=== PATIENT | male | born 1955 | race Caucasian/White ===

== ENCOUNTER 2017-04-27 08:53 | Day surgery (SDC) | payer MEDICARE ==
[~2017-04-27] VITALS: Ht 175.3 cm; Wt 63.6 kg
[~2017-04-27 08:53] MED LIST: CYCLOPENTOLATE HCL 2% 2 ML OPHTHALMIC SOLUTION ONE; DICLOFENAC SODIUM 0.1% 2.5 ML OPHTHALMIC SOLUTION ONE; MOXIFLOXACIN HCL 0.5% 3 ML OPHTHALMIC SOLUTION ONE; PHENYLEPHRINE HCL 2.5% 2 ML OPHTHALMIC SOLUTION ONE; RINGERS SOLUTION,LACTATED 500 ML IV ONE; TETRACAINE HCL/PF 0.5% 4 ML OPHTHALMIC SOLUTION ONE
[2017-04-27] MEDS ORDERED: MIDAZOLAM HCL 2 MG/2 ML VIAL IVP ONE (08:54)
[2017-04-27] MEDS ORDERED: BRIMONIDINE TARTRATE 0.15% 5 ML OPHTHALMIC SOLUTION OD ONE (08:54)
[2017-04-27] MEDS ORDERED: HYALURONATE SOD/CHONDROITIN SOD 0.5 ML VIAL IO ONE (08:54)
[2017-04-27] MEDS ORDERED: HYALURONATE SODIUM 12 MG/ML 0.8 ML SYRINGE IO ONE (08:54)
[2017-04-27] MEDS ORDERED: TETRACAINE HCL VISCOUS 0.5% 5 ML OPHTHALMIC SOLUTION OD ONE (08:54)
[2017-04-27] MEDS ORDERED: POVIDONE-IODINE 10% 15 ML SOLUTION UD TP ONE (08:54)
[2017-04-27] MEDS ORDERED: EPINEPHrine 1:1,000 [1 MG/ML] AMP IM ONE (08:54)
[2017-04-27] MEDS ORDERED: LIDOCAINE HCL/PF 1% 2 ML VIAL IARTIC ONE (08:54)
[2017-04-27] MEDS ORDERED: SODIUM CHLORIDE 0.9% 500 ML IV ONE ×2 (09:37→09:50)
[2017-04-27 09:47] LABS: GLUCOSE,POINT OF CARE 80 MG/DL (70-110)
[2017-04-27] MEDS: MOXIFLOXACIN HCL 0.5% 3 ML OPHTHALMIC SOLUTION OS SCH ×3 (09:52→10:14)
[2017-04-27] MEDS: CYCLOPENTOLATE HCL 2% 2 ML OPHTHALMIC SOLUTION OS SCH ×3 (09:52→10:03)
[2017-04-27] MEDS: DICLOFENAC SODIUM 0.1% 2.5 ML OPHTHALMIC SOLUTION OS SCH ×3 (09:52→10:15)
[2017-04-27] MEDS: PHENYLEPHRINE HCL 2.5% 2 ML OPHTHALMIC SOLUTION OS SCH ×3 (09:52→10:03)
[2017-04-27] MEDS ORDERED: FLUT1AER IH (09:57)
[2017-04-27] MEDS ORDERED: IPRA4AER IH (09:57)
[2017-04-27] MEDS ORDERED: TETRACAINE HCL/PF 0.5% 4 ML OPHTHALMIC SOLUTION OS ONE (10:00)
[2017-04-27] MEDS ORDERED: ACETAMINOPHEN/CODEINE 300-30 MG TABLET PO PRN (10:00)
[2017-04-27] MEDS ORDERED: RINGERS SOLUTION,LACTATED 500 ML IV ONE (10:30)
[2017-04-27] MEDS ORDERED: AcetaZOLAMIDE 250 MG TABLET ONE (11:11)
[2017-04-27] MEDS ORDERED: AcetaZOLAMIDE 250 MG TABLET PO ONE (12:00)
== END 2017-04-27 11:30 | disposition home or self-care (01) ==
LOC: SURGERY 08:53
PROVIDERS: ATTEND Ophthalmology
DX: E11.36 Type 2 diabetes mellitus with diabetic cataract (principal); H25.042 Posterior subcapsular polar age-related cataract, left eye; E11.22 Type 2 diabetes mellitus with diabetic chronic kidney disease; I12.0 Hypertensive chronic kidney disease with stage 5 chronic kidney disease or end stage renal disease; N18.6 End stage renal disease; J44.9 Chronic obstructive pulmonary disease, unspecified; Z79.84 Long term (current) use of oral hypoglycemic drugs; Z87.09 Personal history of other diseases of the respiratory system; Z87.891 Personal history of nicotine dependence
CPT/HCPCS: 66984; 82962; 93005; C1780; J0171; J2250; J3490 ×2; J7040; J7120